=== PATIENT | male | born 1945 | race Caucasian/White ===

== ENCOUNTER 2025-07-07 03:28 | Emergency (ER) | payer MEDICARE ==
[~2025-07-07] VITALS: Ht 172.7 cm; Wt 90.7 kg
[2025-07-07] MEDS ORDERED: TAMS1CAP17 PO (03:35)
[2025-07-07] MEDS ORDERED: CELE1CAP99 PO (03:36)
[2025-07-07] MEDS ORDERED: PRED5PAK PO (03:36)
[2025-07-07 04:07] LABS: BASO # 0.1 10^3/uL (0.0-0.2); BASO % 0.7 % (0.0-1.0); EOS # 0.2 10^3/uL (0.0-0.5); EOS % 2.8 % (0.0-3.0); LYMPH # 3.0 10^3/uL (1.5-5.0); LYMPH % 35.3 % (24.0-44.0); MONO # 0.9 10^3/uL (0.0-0.8); MONO % 11.1 % (2.0-8.0); NEUTROPHILS # 4.2 10^3/uL (1.5-8.5); NEUTROPHILS % 49.7 % (36.0-66.0); PLATELET COUNT, AUTOMATED 144 10^3/uL (150-450)
[2025-07-07 04:22] LABS: CK-MB VALUE MASS 2.8 NG/ML (<3.6)
[2025-07-07 04:24] LABS: ALT/SGPT 27.0 U/L (7.0-40); AST/SGOT 21.0 U/L (<34); CALCIUM LEVEL 8.6 MG/DL (8.3-10.6); CARBON DIOXIDE LEVEL 26.0 MMOL/L (20-31); CHLORIDE LEVEL 110.0 MMOL/L (98-107); CPK CREATINE PHOSPHOKINASE 119.0 U/L (46-171); CREATININE FOR GFR 1.51 MG/DL (0.70-1.30); GLOMERULAR FILTRATION RATE 46.7 (>42); MB/CK RELATIVE INDEX 2.35 (< OR =4); POTASSIUM SERUM 4.1 MMOL/L (3.5-5.1); SODIUM LEVEL 146.0 MMOL/L (136-145)
[2025-07-07 04:26] LABS: INR 0.91
[2025-07-07] MEDS ORDERED: ISOVUE-370 76% 100 ML VIAL As Ordered ONE (05:05)
[2025-07-07] MEDS: ASPIRIN 81 MG CHEWABLE TABLET PO ONE (05:05)
[2025-07-07 05:06] VITALS: BP 161/84
[2025-07-07] MEDS: NITROGLYCERIN 0.4 MG SUBL TABLET SL PRN (05:06)
[2025-07-07 05:17] LABS: CK-MB VALUE MASS 3.2 NG/ML (<3.6)
[2025-07-07 05:23] LABS: CPK CREATINE PHOSPHOKINASE 113.0 U/L (46-171); MB/CK RELATIVE INDEX 2.83 (< OR =4)
[2025-07-07 07:47] LABS: CK-MB VALUE MASS 6.5 NG/ML (<3.6)
[2025-07-07 07:48] LABS: CPK CREATINE PHOSPHOKINASE 129.0 U/L (46-171); MB/CK RELATIVE INDEX 5.03 (< OR =4)
[2025-07-07] MEDS: HEPARIN DRIP 25,000 UNITS in IV 1 EA IV SCH (08:44)
[2025-07-07] MEDS: HEPARIN SOD 5000 UNITS/ML 1 ML VIAL/SYRINGE IV ONE (08:45)
[2025-07-07] MEDS: NS (Normal Saline) 0.9% 1,000 ML IV SCH (08:46)
[2025-07-07 08:52] VITALS: BP 169/80
[2025-07-07 08:53] VITALS: TEMP 98.1
[2025-07-07 09:07] VITALS: O2SAT 99
== END 2025-07-07 09:12 | disposition short-term general hospital (02) ==
LOC: M ED 03:28
DX: I21.4 Non-ST elevation (NSTEMI) myocardial infarction (principal); M35.3 Polymyalgia rheumatica; N40.0 Benign prostatic hyperplasia without lower urinary tract symptoms; Z96.641 Presence of right artificial hip joint
CPT/HCPCS: 71045; 71275; 80048; 80076; 82550; 82553; 83690; 84484; 85025; 85610; 85730; 93005; 93041; 94760; 96374; 99285; Q9967

== ENCOUNTER 2025-07-22 17:26 | Emergency (ER) | payer MEDICARE ==
[~2025-07-22] VITALS: Ht 172.7 cm; Wt 86.4 kg
[~2025-07-22 17:26] MED LIST: CELE1CAP99 PO; PRED5PAK PO; TAMS1CAP17 PO
[2025-07-22] MEDS ORDERED: METO1TAB87 (17:52)
[2025-07-22] MEDS ORDERED: LOSA25TA13 (17:52)
[2025-07-22] MEDS ORDERED: ASPI81CH33 PO (17:52)
[2025-07-22] MEDS ORDERED: ACET-683 PO (17:52)
[2025-07-22] MEDS ORDERED: CLOP75TA2 (17:52)
[2025-07-22] MEDS ORDERED: FURO40TA2 (17:52)
[2025-07-22] MEDS ORDERED: POTA-151 (17:52)
[2025-07-22] MEDS ORDERED: ATOR80TA59 (17:52)
[2025-07-22 18:03] LABS: KETONE, URINE AUTO RFX NEGATIVE (NEGATIVE); LEUKOCYTE ESTERASE UR AUTO RFX NEGATIVE (NEGATIVE); NITRITE, URINE AUTO RFX NEGATIVE (NEGATIVE); RBC, URINE AUTO RFX 0 /HPF (0-3); SQUAM EPITHELIAL CELL UR AURFX 0 /HPF (0-6); WBC, URINE AUTO RFX 0 /HPF (0-3)
[2025-07-22 18:26] LABS: BASO # 0.0 10^3/uL (0.0-0.2); BASO % 0.3 % (0.0-1.0); EOS # 0.1 10^3/uL (0.0-0.5); EOS % 0.8 % (0.0-3.0); LYMPH # 1.8 10^3/uL (1.5-5.0); LYMPH % 15.0 % (24.0-44.0); MONO # 0.9 10^3/uL (0.0-0.8); MONO % 7.9 % (2.0-8.0); NEUTROPHILS # 8.9 10^3/uL (1.5-8.5); NEUTROPHILS % 74.4 % (36.0-66.0); PLATELET COUNT, AUTOMATED 317 10^3/uL (150-450)
[2025-07-22 18:48] LABS: ALT/SGPT 43.0 U/L (7.0-40); AST/SGOT 36.0 U/L (<34); CALCIUM LEVEL 8.4 MG/DL (8.3-10.6); CARBON DIOXIDE LEVEL 25.0 MMOL/L (20-31); CHLORIDE LEVEL 103.0 MMOL/L (98-107); CREATININE FOR GFR 1.1 MG/DL (0.70-1.30); GLOMERULAR FILTRATION RATE 68.3 (>42); POTASSIUM SERUM 5.0 MMOL/L (3.5-5.1); SODIUM LEVEL 137.0 MMOL/L (136-145)
[2025-07-22 18:49] LABS: INR 1.08
[2025-07-22 20:09] LABS: CK-MB VALUE MASS 1.2 NG/ML (<3.6)
[2025-07-22 20:10] LABS: CPK CREATINE PHOSPHOKINASE 92.0 U/L (46-171); MB/CK RELATIVE INDEX 1.3 (< OR =4)
[2025-07-22 20:52] LABS: CK-MB VALUE MASS 1.4 NG/ML (<3.6)
[2025-07-22 20:53] LABS: CPK CREATINE PHOSPHOKINASE 80.0 U/L (46-171); MB/CK RELATIVE INDEX 1.75 (< OR =4)
[2025-07-22 21:15] VITALS: BP 140/77
[2025-07-22] MEDS: FUROSEMIDE 40 MG/4 ML VIAL IV ONE (21:15)
[2025-07-22 23:00] VITALS: TEMP 98.5
[2025-07-22 23:15] VITALS: BP 123/64; O2SAT 99
== END 2025-07-22 23:57 | disposition home or self-care (01) ==
LOC: M ED 17:26
DX: I11.0 Hypertensive heart disease with heart failure (principal); I50.9 Heart failure, unspecified; I25.10 Atherosclerotic heart disease of native coronary artery without angina pectoris; I25.2 Old myocardial infarction; N40.0 Benign prostatic hyperplasia without lower urinary tract symptoms; Z79.899 Other long term (current) drug therapy; M51.34 Other intervertebral disc degeneration, thoracic region; Z95.1 Presence of aortocoronary bypass graft; J98.11 Atelectasis
CPT/HCPCS: 71045; 80047; 80048; 80076; 81001; 82550; 82553; 83690; 83880; 84484; 85025; 85610; 93005; 93041; 94760; 96374; 99285; J1938